=== PATIENT | female | born 1965 | race American Indian/Alaskan Native ===

== ENCOUNTER 2018-01-10 02:14 | Emergency (ER) | payer MEDICAID, OTHER ==
[2018-01-10 02:28] VITALS: PULSE 85
--- NOTE | 2018-01-10 03:09 | ED PDOC ---
HPI: Psych/Substance Abuse Time Seen by Provider: 01/10/18 02:31 Chief Complaint (Nursing): Alcohol Ingestion History Per: Patient History/Exam Limitations: no limitations Onset/Duration Of Symptoms: Mins Additional Complaint(s): Pt. brought to ED for alcohol and drug abuse. Patient states she drank "too much " and used 3 bags of heroin that she sniffed. States she did not pass out of have any injuries. States she has chronic itchiness to her back. Denies suicidal or homicidal ideation. Past Medical History Reviewed: Historical Data, Nursing Documentation, Vital Signs Vital Signs: Last Vital Signs Temp 98.2 F 01/10/18 02:26 Pulse 85 01/10/18 02:26 Resp 18 01/10/18 02:26 BP 135/83 01/10/18 02:26 Pulse Ox 100 01/10/18 02:26 - Medical History PMH: Asthma, HTN Denies: Chronic Kidney Disease - Family History Family History: States: Unknown Family Hx - Immunization History Hx Tetanus Toxoid Vaccination: No Hx Influenza Vaccination: No Hx Pneumococcal Vaccination: No - Home Medications Home Medications: Ambulatory Orders Medication Instructions Recorded Mupirocin Calcium Cream [Bactroban] 1 inch EXT BID #1 tube 09/18/15 Sulfamethoxazole/Trimethoprim 1 tab PO BID #14 tab 09/18/15 [Bactrim DS 800 mg-160 mg] Naloxone HCl [Narcan] 4 mg NS PRN PRN #2 spray 01/10/18 - Allergies Allergies/Adverse Reactions: Allergies Allergy/AdvReac Type Severity Reaction Status Date / Time No Known Allergies Allergy Verified 09/18/15 18:04 Review of Systems ROS Statement: Except As Marked, All Systems Reviewed And Found Negative Physical Exam - Reviewed Nursing Documentation Reviewed: Yes Vital Signs Reviewed: Yes - Physical Exam Appears: Positive for: Well, Non-toxic, No Acute Distress Head Exam: Positive for: ATRAUMATIC, NORMAL INSPECTION, NORMOCEPHALIC Skin: Positive for: Normal Color, Warm, DRY Eye Exam: Positive for: EOMI, Normal appearance, PERRL ENT: Positive for: Normal ENT Inspection Neck: Positive for: Normal, Painless ROM Cardiovascular/Chest: Positive for: Regular Rate, Rhythm Respiratory: Positive for: CNT, Normal Breath Sounds Gastrointestinal/Abdominal: Positive for: Normal Exam, Soft. Negative for: Tenderness Back: Positive for: Normal Inspection, Other (Dry skin) Extremity: Positive for: Normal ROM Neurologic/Psych: Positive for: Alert, Oriented - ECG O2 Sat by Pulse Oximetry: 100 Pulse Ox Interpretation: Normal Medical Decision Making Medical Decision Making: Patient presenting with alcohol and drug abuse -Patient is A&O x 3 -Normal vitals -Will observe in ED till sober 630 Patient clinically sober, stable for discharge. Well appearing, steady gait. Disposition - Clinical Impression Clinical Impression: Alcohol abuse, Heroin abuse - Patient ED Disposition Is Patient to be Admitted: No - Disposition Referrals: Alcoholics Anonymous [Outside] Disposition: Routine/Home Disposition Time: 06:22 Condition: IMPROVED Prescriptions: Naloxone HCl [Narcan] 4 mg NS PRN PRN #2 spray PRN Reason: To Reverse Sedation Instructions: Drug Abuse and Drug Addiction (DC), Alcohol Abuse and Alcoholism (DC) Forms: [employer] (Romans[facility])
[2018-01-10 07:02] VITALS: BP 141/82; RESP 17; TEMP 98.3; O2SAT 97
== END 2018-01-10 07:00 | disposition home or self-care (01) ==
LOC: H.ER 02:14
DX: F10.10 Alcohol abuse, uncomplicated (principal); F11.10 Opioid abuse, uncomplicated; I10 Essential (primary) hypertension